=== PATIENT | female | born 1975 | race African-American/Black ===

== ENCOUNTER 2017-09-16 12:01 | Emergency (ER) | payer MEDICAID ==
[~2017-09-16] VITALS: Ht 170.2 cm; Wt 111.0 kg
[2017-09-16] MEDS ORDERED: bc powder (12:09)
[2017-09-16] MEDS ORDERED: ACETAMINOPHEN 325MG TABLET ONE (12:10)
[2017-09-16] MEDS ORDERED: ALBUTEROL (0.083%) 2.5MG/3ML NEB HHN STA (16:14)
[2017-09-16] MEDS ORDERED: IBUPROFEN 600MG TABLET PO ONE (17:30)
[2017-09-16 18:25] VITALS: BP 118/71
== END 2017-09-16 18:27 | disposition home or self-care (01) ==
LOC: ER 12:01
DX: J06.9 Acute upper respiratory infection, unspecified (principal); R19.7 Diarrhea, unspecified; F12.10 Cannabis abuse, uncomplicated; Z88.2 Allergy status to sulfonamides; Z90.49 Acquired absence of other specified parts of digestive tract; Z98.51 Tubal ligation status
CPT/HCPCS: 71046; 81025; 87804; 94640; 99285; J7611

== ENCOUNTER 2018-02-25 05:33 | Emergency (ER) | payer MEDICAID ==
[~2018-02-25] VITALS: Ht 170.2 cm; Wt 113.0 kg
[~2018-02-25 05:33] MED LIST: bc powder
[2018-02-25 07:08] LABS: CLARITY URINE CLEAR (CLEAR); COLOR URINE YELLOW (YELLOW); KETONES URINE TRACE (NEGATIVE); LEUKOCYTE ESTERASE URINE NEGATIVE (NEGATIVE); NITRITE URINE NEGATIVE (NEGATIVE); OCCULT BLOOD URINE NEGATIVE (NEGATIVE); PROTEIN URINE NEGATIVE (NEGATIVE); SPECIFIC GRAVITY URINE 1.035 (1.005-1.030)
[2018-02-25 08:25] VITALS: BP 134/74
== END 2018-02-25 08:25 | disposition home or self-care (01) ==
LOC: ER 05:45
DX: M54.40 Lumbago with sciatica, unspecified side (principal); G89.29 Other chronic pain; I11.9 Hypertensive heart disease without heart failure; I51.9 Heart disease, unspecified; F12.10 Cannabis abuse, uncomplicated
CPT/HCPCS: 81003; 81025; 93971; 99285; Z7610